=== PATIENT | female | born 1950 | race Caucasian/White ===

== ENCOUNTER 2021-07-23 11:01 | Emergency (ER) | payer MEDICARE, OTHER ==
[2021-07-23 11:50] LABS: HEMOGLOBIN 14.5 gm/dl (12.3-15.3); RED BLOOD COUNT 4.9 M/UL (4.00-5.10); WHITE BLOOD COUNT 6.8 K/UL (4.5-11.0)
[2021-07-23 12:21] LABS: BUN/CREATININE RATIO 14 (0-10)
[2021-07-23] MEDS ORDERED: ZOFRAN ODT 4 MG4 MG SL (15:52)
== END 2021-07-23 16:02 | disposition home or self-care (01) ==
LOC: ER1 11:01
PROVIDERS: Physician Assistant
DX: I95.9 Hypotension, unspecified (principal); I10 Essential (primary) hypertension; Z79.82 Long term (current) use of aspirin; Z79.899 Other long term (current) drug therapy
CPT/HCPCS: 36415; 71045; 80053; 81001; 82550; 82553; 83605; 84484; 85025; 93005; 96374; 99285; J2405; J7030; Q9967